=== PATIENT | male | born 2000 | race Caucasian/White ===

== ENCOUNTER 2021-10-29 11:49 | Emergency (ER) | payer OTHER, SELFPAY ==
[2021-10-29 12:02] VITALS: BP 162/86; PULSE 112; RESP 18; TEMP 36.9; O2SAT 98
--- NOTE | 2021-10-29 12:30 | RT.EKG_ITS ---
APPROVED REPORT Exam: Resting ECG Reason for Exam: tachycardia Patient Location: E HR:91 bpm ECG Measurements Heart Rate 91 AXIS AL 147 P 78 QRSd 94 QRS 21 QT 337 T 28 QTc 415 Conclusion Sinus rhythm...normal P axis, V-rate 60- 99 normal sinus rhythm, normal axis, non ischemic
--- NOTE | 2021-10-29 12:30 | DI.US_ITS ---
Exam(s) US SCROTUM EXAM: US SCROTUM CLINICAL HISTORY: bilateral testicle pain, R>L TECHNIQUE: Ultrasound performed using standard protocol. COMPARISON: US ABDOMEN ULTRASOUND (P) from 08/18/2016 FINDINGS: Scrotal ultrasound was performed according to the usual protocol. Testes show normal echotexture wit h no evidence of a mass. There is unremarkable Doppler evaluation of both testes. No hydrocele or v aricocele seen. The epididymi are normal in appearance and show normal Doppler appearance. IMPRESSION: Negative scrotal ultrasound. DATA REPOSITORY:
--- NOTE | 2021-10-29 12:46 | ED.GENADUL_ITS ---
Discharge Plan Disposition Patient Disposition: HOME Condition: Improving Discharge Details Clinical Impression: Dehydration, Acute viral syndrome Primary Care Provider: None,None ED Provider: Matthias Almonte Home Meds and New Rx's Prescriptions: Continued albuterol sulfate [Proventil HFA] 1 PUFF HFA aerosol inhaler 6.7 gm Inhalation PRN PRN0RF ibuprofen 200 MG capsule 200 mg PO PRN PRN0RF acetaminophen [Tylenol Extra Strength] 500 MG tablet 500 mg PO PRN 0RF ondansetron 4 MG tablet,disintegrating 4 mg PO TID PRN PRNQty: 14 0RF Discharge Instructions Instructions: Dehydration (ED), Viral Syndrome (ED) Additional Instructions: Please return to the emergency department for any worsening symptoms specifically if you are unable to keep down food or if you develop worsening testicular pain. You likely have a viral syndrome your body will likely clear this virus in the neck several days to a week. Continue to stay hydrated at home consider buying Gatorade or Pedialyte. Continue with Motrin Tylenol at home to control fevers aches and pains. Medical Decision Making 20-year-old male no past medical history presents with body ache fatigue nausea vomiting and diarrhea, no active vomiting or diarrhea, nonbloody nonbilious at home, tachycardic on arrival however nontoxic no respiratory distress, endorses testicular and thigh discomfort, normal external genitalia, no penile discharge, normal lie no palpable masses, cremasteric reflex intact, no new sexual partners, clinical history and physical consistent with viral syndrome consider COVID-19 versus other viral etiology versus viral gastroenteritis versus foodborne illness must consider component of dehydration and rhabdomyolysis given thigh discomfort and lower extremity discomfort, must consider STI versus orchitis versus epididymitis versus very unlikely testicular torsion or mass. Will also screen for diabetes with DKA. Fluids antiemetics analgesia basic labs ultrasound chest x-ray Covid swab disposition likely home pending result of labs and imaging. 15: 12 patient resting comfortably no acute distress no vomiting or diarrhea in the department. Heart rate is greatly improved after fluids. No evidence of DK A. Likely component of mild dehydration. High, suspicion for viral syndrome such as COVID-19. No evidence of pneumonia no evidence of testicular torsion mass epididymitis or orchitis. Home care instructions and return precautions given. Patient stable for discharge. HPI General Date/Time Provider Initiated Documentation: 10/29/21 12:32 . HPI Narrative: 20-year-old male denies past medical history endorses nausea and vomiting nonbloody nonbilious as well as loose stool nonbloody nonmucoid associated with body aches mainly in his lower portion of his body including his thighs and scrotum; patient endorses that he was told he is prediabetic; denies chest pain cough or shortness of breath. Denies new sexual partner denies urinary symptom such as frequency or burning. Feels as if his right testicle is slightly more enlarged than his left Related Data Home Medications Medication Instructions Recorded Confirmed albuterol sulfate 90 mcg/actuation 6.7 gm INHALATION PRN PRN 12/03/12 11/27/14 aerosol inhaler (Proventil HFA) ibuprofen 200 mg capsule 200 mg PO PRN PRN 12/03/12 11/27/14 acetaminophen 500 mg tablet 500 mg PO PRN 12/26/13 11/27/14 (Tylenol Extra Strength) ondansetron 4 mg disintegrating 4 mg PO TID PRN PRN #14 tabef 11/27/14 tablet Previous Rx's Medication Instructions Recorded ondansetron 4 mg disintegrating 4 mg PO TID PRN PRN #14 tabef 11/27/14 tablet Allergies Allergy/AdvReac Type Severity Reaction Status Date / Time Sulfa (Sulfonamide Allergy Intermediate Skin Rash Unverified 08/18/16 07:12 Antibiotics) General Stated Complaint: Nausea/Vomit/Diar ANABELL: 3 Review of Systems Narrative: Review of Systems Constitutional: Fatigue body ache Eyes: negative ENT: negative Cardiovascular: negative Respiratory: negative Gastrointestinal: Nausea vomiting diarrhea : Testicular pain Musculoskeletal: negative Skin: negative Neurologic: negative Psych: negative PFSH All Active Problems (Updated 10/29/21 @ 15:13 by Matthias Almonte MD) Dehydration (Acute) Acute viral syndrome (Acute) Social History Smoking/Tobacco Use Status: Never Smoking risk assessment performed?: Yes Alcohol Intake: current Alcohol Intake frequency: a few times a month Drug use: Never Substance use type: marijuana Do you feel safe in your relationship?: Yes Exam Narrative Exam Narrative: Physical Examination General: alert, awake, cooperative, resting comfortably, no acute distress HEENT: normocephalic, atraumatic; PERRL, EOM intact, conjunctiva normal; no nasal discharge; moist mucous membranes, oral and pharyngeal mucosa normal, tolerating secretions Neck: supple, trachea midline; full ROM Chest: normal to inspection Respiratory: normal respiratory effort, speaking in full sentences, clear to auscultation, no wheezing, rales or rhonchi Cardiac: Tachycardia, regular rhythm, S1S2 intact, no murmurs rubs or gallops GI: abdomen soft, non-tender, non-distended; no palpable mass or hepatosplenomegaly : Normal external genitalia, normal bilateral testicles right testicle slightly larger than left, no palpable masses, normal lie normal rougae; normal cremasteric reflex; no penile discharge no inguinal hernia Skin: no lesions, rashes or trauma appreciated Neuro: AAOx3, normal speech, moving all extremities Extremities: No peripheral edema Psych: Appropriate mood and affect Course Vital Signs Vital signs: Vital Signs Temperature 36.9 C 10/29/21 12:02 Pulse 112 H 10/29/21 12:02 Respiratory Rate 18 10/29/21 12:02 Blood Pressure 162/86 H 10/29/21 12:02 Pulse Oximetry 98 10/29/21 12:02 Temperature 36.9 C 10/29/21 12:02 Temperature Source Skin 10/29/21 12:02 Pulse 112 H 10/29/21 12:02 Respiratory Rate 18 10/29/21 12:02 Respiratory Effort 10/29/21 12:07 Blood Pressure 162/86 H 10/29/21 12:02 Blood Pressure Position Sitting 10/29/21 12:02 Pulse Oximetry 98 10/29/21 12:02 Oxygen Delivery Method Room Air 10/29/21 12:02 Oxygen Flow Rate 0 10/29/21 12:02 Pain Level 7 10/29/21 12:02 PAWSS Have you Been Recently Intoxicated or Drunk Within the Last 30 days?: No Have you Ever Experienced Previous Episodes of Alcohol Withdrawal?: No Have you ever Experienced Withdrawal Seizures?: No Have you ever Experienced Delirium Tremens(DT)s?: No Have you ever undergone Alcohol Rehabilitation Treatment (i.e, inpt ot outpatient treatment programs)?: No Have you ever Experienced Blackouts?: No Have you ever Combined Alcohol with other Downers within the last 90 days?: No Have you ever Combined Alcohol with any other Substance of Abuse during the last 90 days?: No Positive Blood Alcohol level on Presentation? [PCS.BAL]: No Evidence of Increased Autonomic Activity (i.e. HR>120, tremor, sweating, agitation, nausea)?: No Result: 0
[2021-10-29] MEDS: Acetaminophen 325 MG TAB 650 MG PO (13:23)
[2021-10-29] MEDS: Normal Saline 1,000 ML 1000 ML IV (13:24)
[2021-10-29] MEDS: Ondansetron 4 MG/2 ML VIAL IVP (13:24)
--- NOTE | 2021-10-29 13:52 | DI.RAD_ITS ---
Exam(s) XR CHEST 1V IN DI DEPT EXAM: XR CHEST 1V IN DI DEPT CLINICAL HISTORY: viral syndrome, tachycardia. TECHNIQUE: 2D digital imaging was performed. COMPARISON: CR ABD FLAT UPRIGHT PA CHEST from 11/27/2014 FINDINGS: LUNGS: Clear. No pleural abnormality seen. HEART: Normal. MEDIASTINUM: Normal. OTHER FINDINGS: None. IMPRESSION: No acute pulmonary findings. DATA REPOSITORY: RADIATION DOSE DELIVERED: Total DLP
[2021-10-29 13:56] LABS: Absolute Basophil Count 0.03 10^3/uL (0.0-0.2); Absolute Lymphocyte Count 0.61 10^3/uL (1.2-3.4); Absolute Monocyte Count 0.88 10^3/uL (0.1-0.8); Absolute Neutrophil Count 12.61 10^3/uL (1.2-6.7); Basophils % 0.2; Eosinophils % 0.1; HCT 46.6 % (40.0-50.0); HGB 15.7 g/dL (13.5-17.5); Immature Grans % 0.7; Lymphocytes % 4.3; MCH 28.8 pg (27.0-33.0); MCHC 33.7 % (32.0-36.0); MCV 85.3 fL (80-95); MPV 9.3 fL (8.0-11.0); Monocytes % 6.2; Neutrophils % 88.5; Nucleated RBC 0 %; Platelet Count 276 10^3/uL (130-400); RBC 5.46 10^6/uL (4.36-5.78); RDW 11.9 % (11.8-14.1); RDW-SD 36.8 fL; WBC 14.25 10^3/uL (4.4-10.8)
[2021-10-29 13:57] LABS: Absolute Eosinophil Count 0.01 10^3/uL (0.0-0.7)
[2021-10-29 14:04] VITALS: BP 134/78; PULSE 77; RESP 12; TEMP 36.7; O2SAT 98
[2021-10-29 14:09] LABS: ALT 28 U/L (16-63); AST 17 U/L (15-37); Albumin 4.2 g/dL (3.4-5.0); Alkaline Phosphatase 68 U/L (46-116); Anion Gap 8.2 mmol/L (3-11); BUN 14 mg/dL (7-18); Bilirubin, Total 1.3 mg/dL (0.2-1.0); CO2 29.8 mmol/L (21.0-32.0); CREATININE 0.7 mg/dL (0.70-1.30); Calcium 9.2 mg/dL (8.5-10.1); Chloride 101 mmol/L (98-107); Creatine Kinase 95 U/L (39-308); Glucose 105 mg/dL (74-106); Potassium 3.1 mmol/L (3.5-5.1); Sodium 139 mmol/L (136-145); Total Protein 7.9 g/dL (6.4-8.2)
[2021-10-29 14:16] LABS: BE (Venous) 3 mmol/L (-2-3); HCO3 (Venous) 28 mmol/L (23-28); O2 Sat (Venous) 63 %; TCO2 (Venous) 25 mmol/L (24-29); pCO2 (Venous) 45 mmHg (41-51); pO2 (Venous) 32 mmHg
[2021-10-29 14:31] LABS: Bilirubin Negative (Negative); Blood Trace-intact (Negative); Clarity Clear (Clear); Glucose Negative (Negative); Ketones Trace mg/dL (Negative); Leukocyte Esterase Negative (Negative); Nitrite Negative (Negative); Specific Gravity >= 1.030 (1.005-1.025); Urobilinogen 0.2 EU/dL (Up TO 0.2); pH 6.5 (5-8)
[2021-10-29 14:41] LABS: Bacteria Negative HPF (Negative); C & S Indicated? No; Casts 0-2 Hyaline LPF (Negative); Crystals Negative HPF (Negative); Epithelial Cells Rare HPF (Negative); Mucus Trace (Negative); RBC 0-2 HPF (0-2); WBC Negative HPF (0-5)
--- NOTE | 2021-10-29 15:14 | NUR.NOTE ---
Nursing Note: Referral given to Care Management to establish care/dehydration/viral syndrome, within 1 to 2 weeks; with a PCP Magdalene Murillo
[2021-10-29 15:39] VITALS: BP 133/78; PULSE 82; RESP 14; TEMP 36.8; O2SAT 99
[2021-10-29 15:57] VITALS: BP 133/78; PULSE 82; RESP 14; TEMP 36.8; O2SAT 99
[2021-10-30 12:29] LABS: Chlamydia Result Negative (Negative); GC Result Negative (Negative)
[2021-10-30 16:38] LABS: COVID-19 RT-PCR UVMMC Result Negative (Negative)
--- NOTE | 2021-10-31 13:53 | PDOC.ERCMACT ---
- If Service Date Differs Date of service: 10/31/21 Time of Service: 13:53 Care Management Activity Note Albert is seen in the ED for dehydration and a viral syndrome. The ED provider requests that CM assist Albert in establishing care with a PCP but a review of his chart reveals that he is already established with Dr. Mandeep Hauser at [facility]. CM contacts the [facility] to ensure Albert is still an active patient at their clinic. CM is advised that Albert hasn't been seen since 2018 but he is still considered an active patient. A message is then left for Nohelia Mckeon RN, children's zoo caretaker at [facility], asking that she outreach to Albert to schedule a follow up appointment.
== END 2021-10-29 15:59 | disposition home or self-care (01) ==
PROVIDERS: Emergency Provider Emergency Medicine
DX: E86.0 Dehydration (principal); B34.9 Viral infection, unspecified; R11.2 Nausea with vomiting, unspecified; Z20.822 Contact with and (suspected) exposure to COVID-19; R19.7 Diarrhea, unspecified; N50.812 Left testicular pain; N50.811 Right testicular pain; R00.0 Tachycardia, unspecified
CPT/HCPCS: 36415; 80053; 82550; 82805; 87491; 87591; 93005; 96361; 96374; 99284; 99285; U0003; 71045; 76870; 81003; 81015; 85025; 93010; J2405

== ENCOUNTER 2023-10-24 13:09 | Outpatient (REF) | payer SELFPAY | END 2023-10-24 13:10 | disposition home or self-care (01) | LOC: LBN 13:09 | PROVIDERS: Visit Provider Physician Assistant Medical | DX: J02.9 Acute pharyngitis, unspecified (principal) | CPT/HCPCS: 87070 ==